=== PATIENT | male | born 2000 | race Caucasian/White ===

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

== ENCOUNTER 2018-04-09 00:45 | Emergency (ER) | END 2018-04-09 05:35 | disposition home or self-care (01) ==

== ENCOUNTER 2019-03-23 18:02 | Emergency (ER) | payer SELFPAY ==
[~2019-03-23] VITALS: Ht 175.3 cm; Wt 62.9 kg
[~2019-03-23 18:02] MED LIST: CLIN300C10 PO; IBUP-1542 PO; TRAM50TA2 PO
[2019-03-23 18:05] VITALS: BP 146/78; PULSE 100; RESP 18; Ht 175.3 cm; Wt 62.9 kg
[2019-03-23] MEDS ORDERED: KETOROLAC 60 MG INJ IM STA (18:39)
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
[2019-03-23] MEDS ORDERED: MELOXICAM 15 MG TAB PO ONE (19:00)
[2019-03-23] MEDS ORDERED: IBUP800T48 PO (19:31)
== END 2019-03-23 19:45 | disposition home or self-care (01) ==
LOC: FTE 18:02
DX: S60.222A Contusion of left hand, initial encounter (principal); F17.210 Nicotine dependence, cigarettes, uncomplicated; J45.909 Unspecified asthma, uncomplicated; V49.59XA Passenger injured in collision with other motor vehicles in traffic accident, initial encounter